=== PATIENT | female | born 1975 | race Caucasian/White ===

== ENCOUNTER 2023-03-19 06:24 | Day surgery (SDC) | payer OTHER ==
[~2023-03-19] VITALS: Ht 170.2 cm; Wt 67.1 kg
[~2023-03-19 06:24] MED LIST: ESTRADIOL2 MG PO; PREMARIN30 GM VAGINAL
[2023-03-19 06:44] VITALS: BP 132/91
--- NOTE | 2023-03-19 08:40 | NUR ---
03/19/23 0840 Ute Tavares 0800 PT ARRIVED IN PACU NON RESPONSIVE TO NOXIOUS STIMULI. CHIN LIFT HELD AND ORDERS GIVEN FOR REVERSAL. 0807 NARCAN 0.2MG GIVEN IV. 0809 ROMAZICON 0.2MG GIVEN IVP. PT RESPONSIVE. 0825 AWAKENS TO VERBAL STIMULI, THEN FALLS BACK TO SLEEP. 0840 VISITING WITH STAFF.
[2023-03-19 08:45] VITALS: BP 111/57
--- NOTE | 2023-03-19 09:04 | NUR ---
0845: PT ARRIVES TO DS RM 3 FROM PACU ON LEFT SIDE WITH EYES CLOSED, RESP EVEN AND UNLABORED. PT DROWSY, AROUSES WITH VERBAL STIMULATION AND DENIES NAUSEA OR PAIN. PT SIG OTHER, MACHEL AT BEDSIDE. PT EDUCATED ABOUT MEDICATIONS GIVEN AND THE NEED TO STAY UNTIL 1009. PT PROVIDED ICED WATER AND CRACKERS PER REQUEST, CALL LIGHT WITHIN REACH.
[2023-03-19 09:49] VITALS: BP 129/79
--- NOTE | 2023-03-19 10:11 | OR ---
[facility] [address] [place], [place] [address] Signed DATE OF OPERATION: 03/19/2023 SURGEON: Gosia Ashley MD PREOPERATIVE DIAGNOSES: 1. Screening. 2. Hemorrhoids. POSTOPERATIVE DIAGNOSES: 1. Minimal external hemorrhoids. 2. Minimal sigmoid diverticulosis. 3. 4 mm polyp at 35 cm in sigmoid colon. PROCEDURE: Colonoscopy with hot biopsy. ESTIMATED BLOOD LOSS: None. INDICATIONS: Pastora is a 47-year-old female, who happens to be one of our local . She is coming for her initial screening colonoscopy. She has no lower GI complaints. There is no family history of colon cancer or polyps. She told me she has hemorrhoids bother her once in a while since she was a kid. In the office, I gave her a pamphlet on colonoscopy. She understands the nature of the test. There is risk including, but not limited to gas bloating, crampy abdominal pain, bleeding, perforation requiring surgery, and missed diagnosis. We also reviewed the need for IV conscious sedation. She had expressed understanding and wished to proceed. PROCEDURE NOTE: Pastora was taken into our endoscopy suite and placed in the left lateral decubitus position. She received a total of 10 mg of Versed and 200 mcg of fentanyl. Some of that was to overcome her anxiety, some of that was her tortuous colon with the need for additional sedation in order to advance the scope. Once we had done a digital rectal exam, she does have minimal external hemorrhoids. She had good sphincter tone. There were no masses. The adult colonoscope had been advanced under direct visualization of the camera. Again, it took some extra sedation in order to get to the cecum itself. Her prep was quite excellent. We could easily see the appendiceal orifice and the ileocecal valve. The scope was then slowly withdrawn. She had just a few shallow diverticula in the sigmoid colon. She had a tiny 4 mm polyp at 35 cm up in the sigmoid Electronically Signed By: GOSIA ASHLEY MD 03/19/23 1011 PATIENT NAME: PASTORA SONI OPERATIVE REPORT DATE OF : 71 REPORT #: [id number] PHYSICIAN: GOSIA ASHLEY MD PCP: MEHDI KIMBROUGH MD REPORT IS CONFIDENTIAL AND NOT TO BE RELEASED WITHOUT AUTHORIZATION [facility] [address] [place], [place] [address] Signed colon. It was easily removed with the help of a hot biopsy forceps. The rectum was unremarkable. Once we got into the rectum, the scope had been retroflexed. She has minimal if any internal hemorrhoid tissue. The gas was then suctioned out and the colonoscope removed. Pastora tolerated the procedure overall well. However, it is recommended she use propofol in the future. In fact, we had to give her some Narcan in the recovery room. RECOMMENDATIONS: Pastora will follow up in my office in 7 to 14 days to review her results. We recommended she have monitored anesthesia care with propofol infusion in the future as described above. Gosia Ashley MD ALB/MODL /[id number] cc: MD Mehdi Alanis MD Copies: GOSIA ASHLEY MD, ROBERT D DMD ~ Electronically Signed By: GOSIA ASHLEY MD 03/19/23 1011 PATIENT NAME: PASTORA SONI OPERATIVE REPORT DATE OF : 71 REPORT #: [id number] PHYSICIAN: GOSIA ASHLEY MD PCP: MEHDI KIMBROUGH MD REPORT IS CONFIDENTIAL AND NOT TO BE RELEASED WITHOUT AUTHORIZATION
--- NOTE | 2023-03-19 10:46 | NUR ---
PT ALERT, ORIENTED AND SUPPORTED BY HER SIG OTHER. PT HERE FOR HER FIRST SCOPE PREP WAS CHALLENGING FOR PT. ALL QUESTIONS ASKED ANSWERED. PT REQUESTED PRAYER MJ MILLAN IN TO TAKE PT. GAVE BLESSING AND WILL FOLLOW
--- NOTE | 2023-03-19 12:55 | NUR ---
[id number]: PT TOLERATES CRACKERS AND WATER WITH NO NAUSEA. PT CONFIRMS THAT SHE IS PASSING FLATUS AND DENIES ANY CRAMPING. PT HAS UNTIL 1009 AND REQUESTS TO GET DRESSED. PT SIG OTHER AT BEDSIDE TO ASSIST, ENCOURAGED TO OPEN CURTAIN WHEN FINISHED.
--- NOTE | 2023-03-19 16:48 | NUR ---
[id number]: DC INSTRUCTIONS PRESENTED VERBALLY AND WRITTEN TO PT AND FRIEND AT BEDSIDE. PT DC FROM DS RM 3 VIA WC TO HOME.
--- NOTE | 2023-03-21 17:13 | PATH ---
[facility] [address] [place], [place] [address] Signed SPECIMEN(S): A SIGMOID POLYP AT 35 CM SPECIMEN SOURCE: A. SIGMOID POLYP AT 35 CM CLINICAL HISTORY: Screening. Polyp 35 cm diverticulosis. FINAL PATHOLOGIC DIAGNOSIS: Sigmoid colon, polyp at 35 cm, biopsy: - Minute hyperplastic polyp. - Negative for dysplasia and malignancy. SDL:[facility]:C2NR MICROSCOPIC EXAMINATION: Histologic sections of all submitted blocks are examined by light microscopy. These findings, together with the gross examination, support the pathologic diagnosis. GROSS DESCRIPTION: The specimen, labeled and designated "Bob sigmoid colon polyp at 35 cm," is received in formalin and consists of one barragan soft tissue fragment, 0.2 cm. Entirely submitted in (A1). JS (under the direct supervision of a pathologist) The Gross Description was prepared using a voice recognition system. The report was reviewed for accuracy; however, sound-alike word errors, addition and/or deletions may occur. If there is any question about this report, please contact Client Services. PERFORMING LABORATORY: The technical component was performed by [facility], [address] [place] [id number] (CLIA# [id number]). Professional interpretation was performed by [facility], [address] [place] [id number] (CLIA#: [id number]). Diagnostician: Allie Martinez MD Pathologist Electronically Signed 03/21/2023 PATIENT NAME: PASTORA SONI PATHOLOGY DATE OF : 71 REPORT #: [id number] PHYSICIAN: [facility] PCP: MEHDI KIMBROUGH MD REPORT IS CONFIDENTIAL AND NOT TO BE RELEASED WITHOUT AUTHORIZATION [address] [address] Signed Copies: ~ PATIENT NAME: PASTORA SONI PATHOLOGY DATE OF : 71 REPORT #: [id number] PHYSICIAN: [facility] PCP: MEHDI KIMBROUGH MD REPORT IS CONFIDENTIAL AND NOT TO BE RELEASED WITHOUT AUTHORIZATION
== END 2023-03-19 10:23 | disposition home or self-care (01) ==
LOC: OPS 06:24 → DS 06:24 → OPS 07:30
PROVIDERS: ATTEND Colon & Rectal Surgery
PROC: 0DBE8ZX Excision of Large Intestine, Via Natural or Artificial Opening Endoscopic, Diagnostic (ICD-10-PCS; principal; 2023-03-19 07:30)
DX: Z12.11 Encounter for screening for malignant neoplasm of colon (principal); K63.5 Polyp of colon; K64.4 Residual hemorrhoidal skin tags; K57.30 Diverticulosis of large intestine without perforation or abscess without bleeding; K64.8 Other hemorrhoids; F41.9 Anxiety disorder, unspecified; F17.200 Nicotine dependence, unspecified, uncomplicated; J30.9 Allergic rhinitis, unspecified; K63.89 Other specified diseases of intestine
CPT/HCPCS: 99153; G0500; J2250; J2310; J3010; J7121